=== PATIENT | male | born 1955 | race Caucasian/White ===

== ENCOUNTER 2024-03-05 06:51 | Day surgery (SDC) | payer MEDICARE, OTHER ==
[~2024-03-05] VITALS: Ht 193 cm; Wt 121.1 kg
[~2024-03-05 06:51] MED LIST: LISINOPRIL40 MG PO; SIMVASTATIN80 MG PO; ZETIA10 MG PO
[2024-03-05] MEDS ORDERED: LACTATED RINGER'S 1,000 ML IV ONE (07:12)
[2024-03-05] MEDS ORDERED: FAMOTIDINE 10MG/ML 2ML SDV IV ONE (07:35)
[2024-03-05] MEDS ORDERED: GLYCOPYRROLATE 0.2 MG/ML IV ONE (09:37)
[2024-03-05] MEDS ORDERED: PROPOFOL 500 MG/50 ML VIAL IV ONE (09:37)
[2024-03-05] MEDS ORDERED: LIDOCAINE HCL 2% 2ML SDV IV ONE (09:37)
[2024-03-05 11:05] VITALS: BP 124/82
== END 2024-03-05 09:20 | disposition home or self-care (01) ==
LOC: ORM 06:51
PROVIDERS: ATTEND Internal Medicine Gastroenterology
PROC: 0DJD8ZZ Inspection of Lower Intestinal Tract, Via Natural or Artificial Opening Endoscopic (ICD-10-PCS; principal; 2024-03-05)
DX: Z12.11 Encounter for screening for malignant neoplasm of colon (principal); K57.30 Diverticulosis of large intestine without perforation or abscess without bleeding; K64.8 Other hemorrhoids; Z86.010 Personal history of colon polyps; Z87.19 Personal history of other diseases of the digestive system; Z90.49 Acquired absence of other specified parts of digestive tract